=== PATIENT | male | born 1985 | race Hispanic/Latino ===

== ENCOUNTER 2017-03-25 21:14 | Emergency (ER) | payer SELFPAY ==
[2017-03-25 21:25] VITALS: BP 128/79; RESP 18; O2SAT 99
--- NOTE | 2017-03-25 21:59 | ED PDOC ---
HPI: CCC, URI, Sore Throat Time Seen by Provider: 03/25/17 21:33 Chief Complaint (Nursing): ENT Problem Chief Complaint (Provider): Sore throat and fever since this morning History Per: Patient History/Exam Limitations: no limitations Have you had recent travel within the past 21 days to any of the following countries: [place], [place], [place] or [place]?: No Onset/Duration Of Symptoms: Hrs Current Symptoms Are (Timing): Still Present Location Of Pain: Throat Sick Contacts (Context): None Associated Symptoms: Fever, Sore Throat. denies: Chills, Cough, Sputum Ear Symptoms: Bilateral: None Severity: Severe Pain Scale Rating Of: 9 Past Medical History Reviewed: Historical Data, Nursing Documentation, Vital Signs Vital Signs: Last Vital Signs Temp 102.1 F H 03/25/17 21:22 Pulse 106 H 03/25/17 21:22 Resp 18 03/25/17 21:22 BP 128/79 03/25/17 21:22 Pulse Ox 99 03/25/17 21:22 - Medical History PMH: No Chronic Diseases - Surgical History Surgical History: No Surg Hx - Family History Family History: States: No Known Family Hx - Living Arrangements Living Arrangements: With Family - Social History Current smoker - smoking cessation education provided: Yes (1 yesterday, none for 10 years ) Alcohol: Occasional Drugs: Denies - Home Medications Home Medications: Ambulatory Orders Medication Instructions Recorded Amoxicillin 875 mg PO BID #20 tab 03/25/17 - Allergies Allergies/Adverse Reactions: Allergies Allergy/AdvReac Type Severity Reaction Status Date / Time No Known Allergies Allergy Verified 03/25/17 21:46 Review of Systems ROS Statement: Except As Marked, All Systems Reviewed And Found Negative Constitutional: Positive for: Fever ENT: Positive for: Throat Pain, Throat Swelling Physical Exam - Reviewed Nursing Documentation Reviewed: Yes Vital Signs Reviewed: Yes - Physical Exam Appears: Positive for: Well, Non-toxic, No Acute Distress Head Exam: Positive for: ATRAUMATIC, NORMAL INSPECTION, NORMOCEPHALIC Skin: Positive for: Normal Color, Warm, DRY Eye Exam: Positive for: Normal appearance ENT: Positive for: Tonsillar Exudate, Tonsillar Swelling, Other (Uvula midline ) . Negative for: Normal ENT Inspection Neck: Positive for: Normal, Painless ROM Cardiovascular/Chest: Positive for: Regular Rate, Rhythm Respiratory: Positive for: CNT, Normal Breath Sounds Back: Positive for: Normal Inspection Extremity: Positive for: Normal ROM Neurologic/Psych: Positive for: Alert, Oriented - ECG O2 Sat by Pulse Oximetry: 99 Disposition - Clinical Impression Clinical Impression: Strep pharyngitis - Patient ED Disposition Is Patient to be Admitted: No Counseled Patient/Family Regarding: Diagnosis, Need For Followup, Rx Given - Disposition Referrals: [facility] [Outside] Disposition: Routine/Home Disposition Time: 21:58 Condition: GOOD Prescriptions: Amoxicillin 875 mg PO BID #20 tab Instructions: Strep Throat (ED)
[2017-03-25 22:06] VITALS: PULSE 94; TEMP 100.6
== END 2017-03-25 22:06 | disposition home or self-care (01) ==
LOC: H.ER 21:14
DX: J02.0 Streptococcal pharyngitis (principal); R50.9 Fever, unspecified